=== PATIENT | male | born 1975 | race Caucasian/White ===

== ENCOUNTER 2018-05-13 10:36 | Inpatient (IN) ==
--- NOTE | 2018-05-13 11:00 | Emergency Department Note ---
Disposition Clinical Impression: Epididymitis, Diverticulitis Disposition: Admitted As Inpatient Condition: Good Referrals: Woody Reese DO [Primary Care Provider] - Forms: ED Satisfaction Letter Time of Disposition: 14:01 Male Urogenital HPI - General Chief complaint: ED Urogenital-Male Stated complaint: "testicular pain,sent from " Time Seen by Provider: 05/13/18 10:46 Source: patient Mode of arrival: ambulatory Limitations: no limitations Nursing Notes Reviewed: Yes Vital Signs Reviewed: Yes - History of Present Illness HPI Narrative: 43-year-old with a one-week history of bilateral testicular pain. Patient also complains of lower abdominal pain. Pt Subjective Complaint: testicle pain Onset (ago): day(s) Duration: constant Location: right testicle, left testicle Severity: moderate Quality: aching Improves with: none Worsens with: none Reports: nausea/vomiting - Related Data Home Medications Medication Instructions Recorded Confirmed No Known Home Drugs 05/13/18 05/13/18 Allergies Allergy/AdvReac Type Severity Reaction Status Date / Time No Known Allergies Allergy Verified 05/13/18 14:20 All systems ED: reviewed and negative except as stated. Constitutional: Denies: fever, chills, weakness, weight change Eyes: Denies: eye pain, eye discharge, vision change ENT ED: Denies: ear pain, throat pain, dental pain, hearing loss, epistaxis, congestion, dysphagia Cardiovascular: Denies: chest pain, palpitations, dyspnea on exertion, edema, syncope Respiratory: Denies: cough, dyspnea, wheezes, hemoptysis, stridor Gastrointestinal: Reports: abdominal pain. Denies: nausea, vomiting, diarrhea, constipation, hematemesis, melena, hematochezia Genitourinary: Reports: testicular pain, testicular mass. Denies: urgency, dysuria, frequency, hematuria Musculoskeletal: Denies: back pain, neck pain, arthralgia, myalgia Integumentary: Denies: rash, abrasion, lesions Neurological: Denies: headache, weakness, numbness, paresthesias, confusion, abnormal gait, vertigo Psychiatric: Denies: anxiety, depression, suicidal thoughts, homicidal thoughts , auditory hallucinations, visual hallucinations Endocrine: Denies: fatigue Hematological/Lymphatic: Denies: easy bleeding, easy bruising Allergic/Immunologic: Denies: facial swelling, urticaria Past Medical History - Past Medical History Medical history: Reports: no medical history Psychiatric history: Reports: no psych history - Social History Smoking Status: Never smoker Smokeless Tobacco Status: No Alcohol use: Reports: occasionally, recent Drug use: Reports: none Physical Exam - General Limitations: no limitations General appearance: alert - Head Head exam: normal inspection - Eye Eye exam: Present: normal appearance - ENT ENT exam: normal exam, normal oropharynx, mucous membranes moist, normal external ear exam - Neck Neck exam: Present: normal inspection, full ROM, trachea midline - Chest Chest inspection: Present: normal inspection, symmetric chest wall rise - Respiratory Respiratory exam: Present: normal lung sounds bilaterally - Cardiovascular Cardiovascular exam: Present: regular rate, normal rhythm, normal heart sounds - Male exam: Present: normal inspection Scrotal exam: testicular tenderness: bilateral - Neurological Exam Neurological exam: Present: alert, oriented X3, normal gait - Psychiatric Psychiatric exam: Present: normal affect, normal mood - Skin Skin exam: Present: warm, dry, intact, normal color Course - Reevaluation(s) Reevaluation #1: 43-year-old with lower abdominal pain and testicular pain. CT scan shows diverticulitis. Ultrasound shows epididymitis Time: 14:00 - Consultations Consultation #1: Discussed with , admit. Time: 13:59 Vital Signs Temperature 97.9 F 05/13/18 10:41 Pulse Rate 71 05/13/18 10:41 Respiratory Rate 20 05/13/18 10:41 Blood Pressure 148/77 05/13/18 10:41 O2 Sat by Pulse Oximetry 98 05/13/18 10:41 Temperature 97.9 F 05/13/18 10:41 Pulse Rate 71 05/13/18 10:41 Respiratory Rate 20 05/13/18 10:41 Blood Pressure 148/77 05/13/18 10:41 O2 Sat by Pulse Oximetry 98 05/13/18 10:41 Oxygen Delivery Oxygen Delivery Room Air Urogenital-Male - Lab Data Result diagrams: 05/13/18 11:02 05/13/18 11:02 Lab Results 05/13/18 05/13/18 05/13/18 Range/Units 10:53 11:02 11:02 WBC 8.1 (4.3-11.1) K/mcL RBC 4.15 L (4.19-5.50) M/mcL Hgb 13.2 (12.9-16.9) g/dL Hct 38.9 (37.5-50.1) % MCV 93.7 (83.0-100.0) fL MCH 31.8 (28.0-33.3) pg MCHC 33.9 (31.6-35.5) g/dL RDW 12.0 (11.5-14.5) % Plt Count 297 (140-400) K/mcL MPV 9.1 L (9.4-12.4) fL Immature Gran % 0.2 (0-4) % Seg Neutrophils % 61.9 % Lymphocytes % 23.6 % Monocytes % 10.5 % Eosinophils % 3.2 % Basophils % 0.6 % Neutrophils # 5.0 (1.6-8.9) K/mcL Lymphocytes # 1.9 (0.6-4.6) K/mcL Monocytes # 0.9 (0.0-1.3) K/mcL Eosinophils # 0.3 (0.0-0.6) K/mcL Basophils # 0.1 (0.0-0.2) K/mcL Sodium 137 (136-145) mEq/L Potassium 4.3 (3.5-5.1) mEq/L Chloride 106 (98-107) mEq/L Carbon Dioxide 23 (23-29) mEq/L BUN 14 (6-20) mg/dL Creatinine 0.90 (0.70-1.30) mg/dL Est GFR ( Amer) > 60 (> 60) Est GFR (Non-Af Amer) > 60 (> 60) BUN/Creatinine Ratio 16 (6-26) Glucose 117 H (70-105) mg/dL Calculated Osmolality 286 (280-300) Calcium 9.2 (8.6-10.3) mg/dL Total Bilirubin 0.3 (0.3-1.0) mg/dL Direct Bilirubin 0.2 (0.0-0.2) mg/dL Indirect Bilirubin 0.1 (0.0-1.2) mg/dL AST 30 (13-39) Units/L ALT 110 H (7-52) Units/L Alkaline Phosphatase 132 H (34-104) Units/L Serum Total Protein 6.8 (6.4-8.9) g/dL Albumin 3.8 (3.5-5.7) g/dL Globulin 3.0 (2.4-3.5) g/dL Albumin/Globulin Ratio 1.3 (1.1-2.2) Urine Color Yellow (Yellow) Urine Clarity Clear (Clear) Urine pH 6.0 (5.0-8.0) pH Units Ur Specific [place] 1.026 H (1.010-1.025) Urine Protein Negative (Neg-Trace) mg/dL Urine Glucose (UA) Normal (Normal) mg/dL Urine Ketones Negative (Negative) mg/dL Urine Blood Negative (Negative) Urine Nitrite Negative (Negative) Urine Bilirubin Negative (Negative) Urine Urobilinogen Normal (Normal) mg/dL Ur Leukocyte Esterase Negative (Negative) Ur Culture Indicated? NO (NO) - Radiology Data Radiology results reviewed: Yes I reviewed the patient's radiology results. Abdomen/Pelvis CT 05/13/18 10:53 IMPRESSION: 1. Diverticulosis in the colon with infiltration of the fat adjacent to the sigmoid colon and extraluminal gas in this region. Findings suggest acute diverticulitis without evidence for a diverticular abscess. 2. Fatty infiltration of the liver. 3. Unremarkable appearing gallbladder. 4. Normal appearing appendix. 5. No obstructive uropathy. D/ / 05/13/2018 12:18:27 Jalen Richey MD / [facility] Interpreting Provider: Jalen Richey MD Scrotum Ultrasound 05/13/18 10:53 IMPRESSION: 1. Findings suspicious for acute right-sided epididymitis with possible early orchitis. 2. Enlarged, heterogeneous left epididymis which may represent sequela of chronic epididymitis. 3. Small simple appearing bilateral hydroceles. D/ / 05/13/2018 11:51:23 Suresh Brown MD / [facility] Interpreting Provider: Suresh Brown MD
[2018-05-13 11:14] LABS: Basophils # 0.1 K/mcL (0.0-0.2); Basophils % 0.6 %; Eosinophils # 0.3 K/mcL (0.0-0.6); Eosinophils % 3.2 %; Hematocrit 38.9 % (37.5-50.1); Hemoglobin 13.2 g/dL (12.9-16.9); Immature Granulocytes % 0.2 % (0-4); Lymphocytes # 1.9 K/mcL (0.6-4.6); Lymphocytes % 23.6 %; Mean Corpuscular HGB Conc 33.9 g/dL (31.6-35.5); Mean Corpuscular Hemoglobin 31.8 pg (28.0-33.3); Mean Corpuscular Volume 93.7 fL (83.0-100.0); Mean Platelet Volume 9.1 fL (9.4-12.4); Monocytes # 0.9 K/mcL (0.0-1.3); Monocytes % 10.5 %; Platelet Count 297 K/mcL (140-400); Red Blood Count 4.15 M/mcL (4.19-5.50); Segmented Neutrophils % 61.9 %
[2018-05-13 11:18] LABS: Bilirubin,Urine Negative (Negative); Blood,Urine Negative (Negative); Clarity,Urine Clear (Clear); Color,Urine Yellow (Yellow); Glucose,Urine (UA) Normal (Normal); Ketones,Urine Negative (Negative); Leukocyte Esterase,Urine Negative (Negative); Nitrite,Urine Negative (Negative); Protein,Urine Negative (Neg-Trace); Specific Gravity,Urine 1.026 (1.010-1.025); Urobilinogen,Urine Normal (Normal)
[2018-05-13 11:34] LABS: Alanine Aminotransferase 110 Units/L (7-52); Albumin 3.8 g/dL (3.5-5.7); Albumin/Globulin Ratio 1.3 (1.1-2.2); Alkaline Phosphatase 132 Units/L (34-104); Aspartate Amino Transferase 30 Units/L (13-39); BUN/Creatinine Ratio 16 (6-26); Bilirubin,Direct 0.2 mg/dL (0.0-0.2); Bilirubin,Indirect 0.1 mg/dL (0.0-1.2); Bilirubin,Total 0.3 mg/dL (0.3-1.0); Blood Urea Nitrogen 14 mg/dL (6-20); Calcium 9.2 mg/dL (8.6-10.3); Carbon Dioxide 23 mEq/L (23-29); Chloride 106 mEq/L (98-107); Glucose 117 mg/dL (70-105); Osmolality,Calculated 286 (280-300); Potassium 4.3 mEq/L (3.5-5.1); Sodium 137 mEq/L (136-145); Total Protein 6.8 g/dL (6.4-8.9); eGFR For African Americans > 60 (> 60); eGFR For Non-African Americans > 60 (> 60)
[2018-05-13] MEDS ORDERED: MetroNIDAZOLE 500 MG/100 ML 500 MG/100 ML BAG IVPB ONE (13:57)
[2018-05-13] MEDS ORDERED: Levofloxacin 750 MG/150 ML 750 MG/150 ML BAG IVPB ONE (13:57)
[2018-05-13] MEDS ORDERED: *HR* Promethazine 25 MG/ML VIAL IVP PRN (14:07)
[2018-05-13] MEDS ORDERED: OXYCODONE Oral CONC 10 MG/0.5 ML ORAL.SYG SL PRN ×2 (14:07)
[2018-05-13] MEDS ORDERED: Ondansetron 4 MG/2 ML VIAL IVP PRN (14:07)
--- NOTE | 2018-05-13 15:11 | General Surg History&Physical ---
Date of Encounter: 05/13/18 Time of Encounter: 14:30 Assessment and Plan (1) Perforation of sigmoid colon due to diverticulitis Current Visit: Yes Status: Acute The assessment and plan as outlined above was discussed with the patient and/or family members who expressed understanding and agreement. All questions were answered. Conservative management: NPO IV fluids IV antibiotics- Levaquin, Flagyl Supportive care and pain control Serial abdominal exams Incentive Spirometer every 1 hour while awake PPI therapy daily Repeat am labs- CBC,BMP (2) Epididymitis Current Visit: Yes Status: Acute The assessment and plan as outlined above was discussed with the patient and/or family members who expressed understanding and agreement. All questions were answered. IV antibiotics- levaquin Supportive care (3) Obesity (BMI 30-39.9) Current Visit: Yes Status: Chronic The assessment and plan as outlined above was discussed with the patient and/or family members who expressed understanding and agreement. All questions were answered. (4) DVT prophylaxis Current Visit: Yes Status: Acute The assessment and plan as outlined above was discussed with the patient and/or family members who expressed understanding and agreement. All questions were answered. Heparin 5,000 units SQ twice daily for DVT prophylaxis Ambulate hallways TID with assistance History of Present Illness Chief complaint: Abdominal and scrotal pain HPI: Mr. Pedroza is a 43 year old male who states that he has no medical problems and he has not seen a medical doctor for 20 years up until 3 weeks ago. He states that he had sudden onset of scrotal pain 3 weeks ago which was severe. He has never experienced anything like this in the past. He scheduled an appointment with a PCP (Dr. Reese) for further evaluation. 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 He states that the pain has progressed over the past 7 -10 days and is now located in his lower abdomen as well. He states that the pain is constant across his lower abdomen and he does have intermittent sharp pains. The pain radiates into bilateral flank areas. Physical activity is the only thing that he can pinpoint which aggrevates the pain. He states that the pain became severe after push mowing his grass 3 days ago. He missed 2 days of work last week and was sent home yesterday due to the pain. He has never experienced pain like this in the past. Rest does help to ease the pain but it does not go away. He states that he has no appetite but he has been eating. Denies any weight loss. Denies any nausea/vomiting. Denies any changes in bowel habits and states that he has a bowel movement 2 times per day every morning. He does have occasional blood on the tissue paper while wiping but this is not a new finding. He attributes to hemorrhoids. He admits to chills but did not check his temperature. He feels as though he has had a fever. He admits to bloating. He states that he does have pain in his lower abdomen with urination but no pain in his penis with urination. Denies any hematuria. Past Med Surg Social Fam HX - Past Medical History Source: patient Medical history: no medical history, other (Obesity) Psychiatric history: no psych history - Past Surgical History Surgical History: no surgical history - Social History Smoking Status: Never smoker Smokeless Tobacco Status: No Alcohol use: occasionally, recent Drug use: none Occupational status: employed Current living situation: Home - Independent Activity Level: Independent ambulation Recent Out of Country Travel Within the Last 8 Weeks: No - Family History Mother Living Status: Still Living Father History Unknown: Yes Living Status: Still Living Sister Living Status: Still Living - Additional Family History Additional family history: Aunt- in her 50's with lung and brain cancer ; Aunt in her 50's with leukemia and liver cancer; Uncle- in his 50's from an DC Medications and Allergies No Known Home Drugs 05/13/18 [History] 3 Allergy/AdvReac Type Severity Reaction Status Date / Time No Known Allergies Allergy Verified 05/13/18 14:20 Review of Systems All systems PM: reviewed and no additional remarkable complaints except as stated (in the HPI) All systems PM: The remainder of the systems were reviewed and are negative General Surgery Exam Initial Vital Signs Temp Pulse Resp BP Pulse Ox 97.9 F 71 20 148/77 98 05/13/18 10:41 05/13/18 10:41 05/13/18 10:41 05/13/18 10:41 05/13/18 10:41 Results - Labs 05/13/18 11:02 05/13/18 11:02 Abnormal lab results RBC 4.15 M/mcL (4.19-5.50) L 05/13/18 11:02 MPV 9.1 fL (9.4-12.4) L 05/13/18 11:02 Glucose 117 mg/dL (70-105) H 05/13/18 11:02 ALT 110 Units/L (7-52) H 05/13/18 11:02 Alkaline Phosphatase 132 Units/L (34-104) H 05/13/18 11:02 Ur Specific [place] 1.026 (1.010-1.025) H 05/13/18 10:53 All other labs normal. - Imaging CT scan - abdomen: report reviewed CT scan - pelvis: report reviewed Additional studies: Abdomen/Pelvis CT 05/13/18 10:53 IMPRESSION: 1. Diverticulosis in the colon with infiltration of the fat adjacent to the sigmoid colon and extraluminal gas in this region. Findings suggest acute diverticulitis without evidence for a diverticular abscess. 2. Fatty infiltration of the liver. 3. Unremarkable appearing gallbladder. 4. Normal appearing appendix. 5. No obstructive uropathy. D/ / 05/13/2018 12:18:27 Jalen Richey MD / [facility] Interpreting Provider: Jalen Richey MD Scrotum Ultrasound 05/13/18 10:53 IMPRESSION: 1. Findings suspicious for acute right-sided epididymitis with possible early orchitis. 2. Enlarged, heterogeneous left epididymis which may represent sequela of chronic epididymitis. 3. Small simple appearing bilateral hydroceles. D/ / 05/13/2018 11:51:23 [facility] Inter[facility] Provider: Suresh Brown MD - Attending Attestation For this encounter, I have reviewed the COMPUTERIZED MACHINE FABRIC CUTTER or PA documentation, treatment plan, and medical decision making; and I have had face to face time with this patient.
[2018-05-13] MEDS: 0.9 % Sodium Chloride 1,000 ML IVC SCH ×2 (16:52→23:27)
[2018-05-13] MEDS: Pantoprazole 40 MG VIAL IVP SCH (16:53)
[2018-05-13] MEDS: MetroNIDAZOLE 500 MG/100 ML 500 MG/100 ML BAG IVPB SCH (23:27)
[2018-05-14 05:18] LABS: Basophils % 0.5 %; Eosinophils # 0.3 K/mcL (0.0-0.6); Eosinophils % 2.8 %; Hematocrit 37.9 % (37.5-50.1); Hemoglobin 12.8 g/dL (12.9-16.9); Immature Granulocytes % 0.8 % (0-4); Immature Platelets 2.2 % (1.1-6.1); Lymphocytes % 22.7 %; Mean Corpuscular HGB Conc 33.8 g/dL (31.6-35.5); Mean Corpuscular Hemoglobin 31.8 pg (28.0-33.3); Mean Corpuscular Volume 94.3 fL (83.0-100.0); Mean Platelet Volume 9.4 fL (9.4-12.4); Monocytes # 0.9 K/mcL (0.0-1.3); Monocytes % 9.7 %; Neutrophils # 5.6 K/mcL (1.6-8.9); Platelet Count 296 K/mcL (140-400); Red Blood Count 4.02 M/mcL (4.19-5.50); Segmented Neutrophils % 63.5 %
[2018-05-14 05:36] LABS: BUN/Creatinine Ratio 11 (6-26); Blood Urea Nitrogen 10 mg/dL (6-20); Calcium 8.9 mg/dL (8.6-10.3); Carbon Dioxide 25 mEq/L (23-29); Chloride 106 mEq/L (98-107); Glucose 103 mg/dL (70-105); Osmolality,Calculated 283 (280-300); Sodium 137 mEq/L (136-145); eGFR For African Americans > 60 (> 60); eGFR For Non-African Americans > 60 (> 60)
[2018-05-14] MEDS: Pantoprazole 40 MG VIAL IVP SCH (09:52)
[2018-05-14] MEDS: 0.9 % Sodium Chloride 1,000 ML IVC SCH ×3 (09:52→23:54)
[2018-05-14] MEDS: MetroNIDAZOLE 500 MG/100 ML 500 MG/100 ML BAG IVPB SCH ×3 (09:53→23:54)
[2018-05-14] MEDS: Levofloxacin 750 MG/150 ML 750 MG/150 ML BAG IVPB SCH (09:53)
--- NOTE | 2018-05-14 10:44 | General Surgery Progress Note ---
<Alessia Carr Pavel - Last Filed: 05/14/18 10:42> Date of Encounter: 05/14/18 Time of Encounter: 10:30 - Assessment and Plan (1) Perforation of sigmoid colon due to diverticulitis Current Visit: Yes Status: Acute Continue Conservative management: Clear liquid diet IV fluids- decreased to 75ml/hour IV antibiotics- Levaquin, Flagyl Supportive care and pain control Serial abdominal exams Incentive Spirometer every 1 hour while awake PPI therapy daily Bindery Supervisor consult- lower fiber diet education (2) Epididymitis Current Visit: Yes Status: Acute Continue Levaquin Supportive care (3) Obesity (BMI 30-39.9) Current Visit: Yes Status: Chronic (4) DVT prophylaxis Current Visit: Yes Status: Acute Heparin 5,000 units SQ twice daily for DVT prophylaxis Ambulate hallways TID with assistance Subjective Patient reports: no new complaints, feels better, voiding w/o difficulty ( minimal discomfort with urination in the suprapubic region (significantly improved)), flatus, no bowel movement, afebrile, other (Patient reports that abdominal pain has resolved) Objective Vital Signs - Last 8 Hours Temp Pulse Resp BP Pulse Ox 05/14/18 05:21 97.4 F L 54 16 120/75 98 Intake and Output 05/13/18 05/14/18 05/14/18 23:59 07:59 15:59 Intake Total 1000 / 1000 100 / 100 1000 / 1000 Output Total 750 / 750 1400 / 1400 Balance 250 / 250 -1300 / -1300 1000 / 1000 Intake: IV Fluids 1000 / 1000 100 / 100 1000 / 1000 0.9 % Sodium Chloride 1,000 ML 1000 / 1000 1000 / 1000 @ 125 mls/hr IVC .Q8H [facility] Rx#: [id number] Flagyl Premix 500 MG/100 ML 500 100 / 100 mg In 100 ml @ 100 mls/hr IVPB Q8HR [facility] Rx#:[id number] Oral 0 / 0 0 / 0 Output: Urine 750 / 750 1400 / 1400 Other: Meal NPO NPO BREAKFAST Percent of Meal Consumed 0% Weight 123.4 kg Blood Glucose* 98 105 Patient Weight 05/14/18 23:59 Weight 123.4 kg - General physical appearance well developed, well nourished, no distress - Eyes normal ocular movement - ENT normal mucosa, atraumatic, normocephalic - Neck Neck exam: trachea midline - Respiratory normal expansion, normal respiratory effort, clear to auscultation - Cardiovascular Cardiovascular exam: Present: RRR - Abdomen Abdomen: Present: bowel sounds present, soft, tender (minimal, suprapubic) - Integumentary no rash, no growths, no abnormal pigmentation - Neurologic CN 2-12 grossly intact - Musculoskeletal normal gait, normal posture - Psychiatric oriented to time, oriented to person, oriented to place, speech is normal, memory intact - Labs 05/14/18 05:05 05/14/18 05:05 Diabetes panel 05/14/18 Range/Units 05:05 Sodium 137 (136-145) mEq/L Potassium 4.0 (3.5-5.1) mEq/L Chloride 106 (98-107) mEq/L Carbon Dioxide 25 (23-29) mEq/L BUN 10 (6-20) mg/dL Creatinine 0.88 (0.70-1.30) mg/dL Glucose 103 (70-105) mg/dL Calcium 8.9 (8.6-10.3) mg/dL Calcium panel 05/14/18 Range/Units 05:05 Calcium 8.9 (8.6-10.3) mg/dL Pituitary panel 05/14/18 Range/Units 05:05 Sodium 137 (136-145) mEq/L Potassium 4.0 (3.5-5.1) mEq/L Chloride 106 (98-107) mEq/L Carbon Dioxide 25 (23-29) mEq/L BUN 10 (6-20) mg/dL Creatinine 0.88 (0.70-1.30) mg/dL Glucose 103 (70-105) mg/dL Calcium 8.9 (8.6-10.3) mg/dL Adrenal panel 05/14/18 Range/Units 05:05 Sodium 137 (136-145) mEq/L Potassium 4.0 (3.5-5.1) mEq/L Chloride 106 (98-107) mEq/L Carbon Dioxide 25 (23-29) mEq/L BUN 10 (6-20) mg/dL Creatinine 0.88 (0.70-1.30) mg/dL Glucose 103 (70-105) mg/dL Calcium 8.9 (8.6-10.3) mg/dL Consult Discharge Plan - Plan Referrals: Woody Reese DO [Primary Care Provider] - - Attending Attestation For this encounter, I have reviewed the MACHINE I TRIMMER or PA documentation, treatment plan, and medical decision making; and I have had face to face time with this patient. <Lisseth Arellano Boris - Last Filed: 05/14/18 20:30> Date of Encounter: 05/14/18 - Assessment and Plan (1) DVT prophylaxis Current Visit: Yes Status: Acute (2) Epididymitis Current Visit: Yes Status: Acute (3) Perforation of sigmoid colon due to diverticulitis Current Visit: Yes Status: Acute discussed with patient his CT results continue antibiotics tolerating clears DC planning with po antibiotics will follow up with patient in 2 weeks and discuss outpatient colonscopy at that time gi/dvt prophylaxis prn pain control prn antiemetics ok to shower (4) Obesity (BMI 30-39.9) Current Visit: Yes Status: Chronic Subjective Patient reports: no new complaints, feels better, voiding w/o difficulty, flatus , no bowel movement, nausea (with his clears this afternoon), afebrile Objective Vital Signs - Last 8 Hours Temp Pulse Resp BP Pulse Ox 05/14/18 19:15 97.9 F 62 16 128/77 98 05/14/18 15:23 97.3 F L 62 14 134/87 97 Intake and Output 05/14/18 05/14/18 05/14/18 07:59 15:59 23:59 Intake Total 320 / 320 Output Total 800 / 1650 400 / 400 Balance -800 / 320 -80 / -80 Intake: IV Fluids 100 / 100 Flagyl Premix 500 MG/100 ML 500 100 / 100 mg In 100 ml @ 100 mls/hr IVPB Q8HR [facility] Rx#:[id number] Oral 220 / 220 Output: Urine 800 / 1650 400 / 400 Other: Meal Dinner Percent of Meal Consumed 80% - General physical appearance well developed, well nourished, no distress - Eyes normal ocular movement - ENT normal mucosa, normocephalic - Neck Neck exam: trachea midline - Respiratory normal expansion, clear to auscultation - Cardiovascular Cardiovascular exam: Present: RRR - Abdomen Abdomen: Present: bowel sounds present, soft, tender. Absent: distended, guarding, rebound - Integumentary no growths, no abnormal pigmentation - Neurologic CN 2-12 grossly intact - Musculoskeletal normal posture - Psychiatric oriented to time, oriented to person, oriented to place, speech is normal, memory intact - Labs 05/14/18 05:05 05/14/18 05:05 - Imaging CT scan - abdomen: report reviewed, image reviewed CT scan - pelvis: report reviewed, image reviewed - Attending Attestation I have personally performed a face to face evaluation on this patient. I have reviewed and agree with the care plan. History and Exam by me shows:
--- NOTE | 2018-05-14 12:32 | Electrocardiograph Report ---
[place] [id number] Test Date: 2018-05-13 Pat Name: Shawn Pedroza Department: 115 Room: 3A Gender: M Delivery Route Driver: ABDON : 1975 Requested By: Alessia Carr Order Number: [id number] Reading MD: Macho Lechuga Measurements Intervals [place] Rate: 55 P: 54 WV: 157 QRS: 7 QRSD: 97 T: -4 QT: 433 QTc: 422 Interpretive Statements SINUS BRADYCARDIA Electronically Signed On 05-14-2018 12:30:54 EDT by Macho Lechuga
[2018-05-15 07:48] VITALS: BP 111/67
[2018-05-15] MEDS: MetroNIDAZOLE 500 MG/100 ML 500 MG/100 ML BAG IVPB SCH (07:55)
[2018-05-15] MEDS: Levofloxacin 750 MG/150 ML 750 MG/150 ML BAG IVPB SCH (08:00)
--- NOTE | 2018-05-15 08:06 | Discharge Summary ---
Date of Encounter: 05/15/18 Time of Encounter: 08:08 - Discharge Diagnosis (1) Epididymitis Priority: Secondary Status: Acute (2) Diverticulitis Priority: Primary Status: Acute (3) Perforation of sigmoid colon due to diverticulitis Priority: Secondary Status: Acute (4) Obesity (BMI 30-39.9) Priority: Secondary Status: Chronic General Surgery Exam Initial Vital Signs Temp Pulse Resp BP Pulse Ox 97.9 F 71 20 148/77 98 05/13/18 10:41 05/13/18 10:41 05/13/18 10:41 05/13/18 10:41 05/13/18 10:41 VITAL SIGNS: Reviewed. See [facility] GENERAL: In no apparent distress. HEENT: Normocephalic, atraumatic, pupils are equal and reactive, extraocular motions intact, oropharynx is pink and moist, there is no neck adenopathy or JVD noted. CHEST/RESPIRATORY: The thorax is free from signs of trauma. Lung sounds: clear to auscultation, normal respiratory effort CARDIAC: Regular rate and rhythm. Normal S1 and S2, without murmurs, gallops, or rubs. VASCULAR: No Edema. 2+ peripheral pulses. ABDOMEN: obese, soft, nontender MUSCULOSKELETAL: Good range of motion of all major joints. Extremities without clubbing, cyanosis or edema. NEUROLOGIC EXAM: Alert and oriented x 3. Speech normal. Follows commands. PSYCHIATRIC: Mood normal. SKIN: No rash or lesions. - Hospital Course Hospital course: Mr. Pedroza is a 43 year old male who presented on 05/13/2018 with complaints of abdominal and testicular pain for the previous 3 weeks. He stated the pain had progressed in the previous 7 to 10 days and became localized in his lower abdomen. His CT and laboratory studies were consistent with diverticulitis, with microperforation, and epididymitis. He was treated conservatively with bowel rest, IV antibiotics (Levaquin and Flagyl) and slowly advanced on his diet. He states his abdominal discomfort is significantly improved, his white blood cell count is normal, vital signs are stable, is afebrile, and is ambulating and voiding without difficulty. We'll begin discharge planning to home with follow-up in the office in 2 weeks to discuss colonoscopy. - Time Spent with Patient Total time spent providing and/or coordinating discharge services: - Discharge Medications Prescriptions: Ibuprofen [Ibu] 800 mg PO Q8HR PRN 14 Days #30 tablet PRN Reason: Pain Levofloxacin [Levaquin] 750 mg PO DAILY 11 Days #11 tablet metroNIDAZOLE [Metronidazole] 500 mg PO TID #35 tablet Ondansetron ODT [Zofran ODT] 4 mg PO Q4H PRN #30 tab.rapdis PRN Reason: Nausea Home Medications: Ibuprofen [Ibu] 800 mg PO Q8HR PRN 14 Days #30 tablet 05/15/18 [Rx] Levofloxacin [Levaquin] 750 mg PO DAILY 11 Days #11 tablet 05/15/18 [Rx] Ondansetron ODT [Zofran ODT] 4 mg PO Q4H PRN #30 tab.rapdis 05/15/18 [Rx] metroNIDAZOLE [Metronidazole] 500 mg PO TID #35 tablet 05/15/18 [Rx] Allergies/Adverse Reactions: 3 Allergy/AdvReac Type Severity Reaction Status Date / Time No Known Allergies Allergy Verified 05/13/18 14:20 Date of admission: 05/14/18 14:34 Primary care physician: Woody Reese Discharging clinician: Latrice Carrillo Anticipated date of discharge: 05/15/18 - Patient Status Disposition: Home, Self-Care Condition: Good Functional capacity at discharge: independent ambulation Overall status at discharge: patient is progressing back to baseline - Discharge Instructions Instructions: Diverticulitis (DC), Diverticulitis Diet (DC), Perforated Bowel ( DC) Follow Up With: Woody Reese DO [Primary Care Provider] - Lisseth Arellano MD [Partnered Physician] - 05/29/18 9:55 am Forms: Inpatient Work/School Release Additional Instructions: 1. Do not drink alcohol while taking metronidazole. Drinking alcohol while taking metronidazole can cause violent vomiting and severe abdominal discomfort. Refrain from drinking alcohol for 48 hours after completing metronidazole. 2. Take your antibiotics as directed. Do not stop your antibiotics without talking to your provider 1st. -Do not begin Levofloxacin until 05/16/2018 (because you had your daily dose in the hospital on 05/15/2018) -Take metronidazole twice on 05/15/2018 (8 hours in between doses) (because you had your first daily dose in the hospital on 05/15/2018). Then three times daily thereafter. 3. Follow a low fiber diet and avoid seeds or nuts until seen in follow-up and advised otherwise. 4. Return to the hospital or notify the office if you have return of your previous symptoms, fever greater than 100.5 and increased abdominal discomfort; otherwise, follow-up as directed. - Diet and Activity Activity: increase activity as tolerated Diet: other (Low fiber; then diverticulitis diet)
== END 2018-05-15 14:15 | disposition home or self-care (01) | DRG 392 ==
LOC: EMEROO 10:36 → 3ANU 10:36
PROVIDERS: ADMIT Surgery; ATTEND Surgery